=== PATIENT | male | born 1975 | race Caucasian/White ===

== ENCOUNTER 2024-05-24 12:13 | Emergency (ER) | payer OTHER ==
[2024-05-24 12:25] VITALS: TEMP 98.7
[2024-05-24] MEDS: ONDANSETRON HCL INJ 2MG/ML 2ML 2 MG/ML VIAL IV STA ×2 (13:38→14:50)
[2024-05-24] MEDS: LORAZEPAM INJ 2 MG/ML VIAL IV ONE (13:38)
[2024-05-24] MEDS: SODIUM CHLORIDE 0.9% 1000ML 1,000 ML IV ONE ×2 (13:39→14:50)
[2024-05-24] MEDS: Morphine 4mg INJECTION 4 MG/ML INJ IV ONE ×2 (13:39→14:50)
[2024-05-24] MEDS ORDERED: PROMETHAZINE HCL (IM) 25 MG/ML VIAL IM ONE (14:36)
[2024-05-24] MEDS ORDERED: DEXAMETHASONE SOD PHOS INJ 4 MG/ML SDV ONE (14:36)
[2024-05-24] MEDS: DEXAMETHASONE SOD PHOS 10 MG/1 ML VIAL IV ONE (14:50)
[2024-05-24] MEDS: PROMETHAZINE 25MG/ NS 50ML (IV) IV ONE (14:50)
[2024-05-24] MEDS: METRONIDAZOLE 500MG/NS 100ML 100 ML IV ONE (14:57)
[2024-05-24 15:03] VITALS: PULSE 104; RESP 20
[2024-05-24] MEDS ORDERED: ONDANSETRON ODT4 MG PO (15:43)
[2024-05-24] MEDS ORDERED: FLAGYL375 MG PO (15:43)
[2024-05-24] MEDS ORDERED: CIPRO500 MG PO (15:44)
[2024-05-24] MEDS: CIPROFLOXACIN 400 MG/D5W 200ML 200 ML IV ONE (15:53)
[2024-05-24 16:27] VITALS: BP 163/91; PULSE 116; RESP 20; TEMP 99; O2SAT 98
== END 2024-05-24 16:25 | disposition home or self-care (01) ==
LOC: FSED 12:27
DX: R10.84 Generalized abdominal pain (principal); R11.2 Nausea with vomiting, unspecified; E86.0 Dehydration; N28.9 Disorder of kidney and ureter, unspecified; F41.9 Anxiety disorder, unspecified; Z11.52 Encounter for screening for COVID-19; R94.31 Abnormal electrocardiogram [ECG] [EKG]
CPT/HCPCS: 0223U; 74176; 76705; 80048; 80076; 84484; 85025; 87400; 93005; 99283; J0744; J1100 ×2; J2060; J2270; J2405; J2550; J7030

== ENCOUNTER 2024-05-26 13:41 | Observation (INO) | payer BC, OTHER ==
[~2024-05-26] VITALS: Ht 175.3 cm; Wt 96.6 kg
[~2024-05-26 13:41] MED LIST: CIPRO500 MG PO; FLAGYL375 MG PO; ONDANSETRON ODT4 MG PO
[2024-05-26 13:50] VITALS: PULSE 102; RESP 16; TEMP 98.2
[2024-05-26] MEDS ORDERED: PROMETHAZINE HCL (IM) 25 MG/ML VIAL IM ONE (14:14)
[2024-05-26] MEDS: SODIUM CHLORIDE 0.9% 1000ML 1,000 ML IV ONE (14:34)
[2024-05-26] MEDS: Morphine 4mg INJECTION 4 MG/ML INJ IV ONE (14:34)
[2024-05-26] MEDS: PROMETHAZINE 25MG/ NS 50ML (IV) IV ONE (14:34)
[2024-05-26] MEDS: LORAZEPAM INJ 2 MG/ML VIAL IV ONE (14:34)
[2024-05-26 16:28] VITALS: BP 132/98; PULSE 87; RESP 18; TEMP 98.2; O2SAT 99
[2024-05-26] MEDS: SODIUM CHLORIDE 0.9% 1000ML 1,000 ML IV SCH (17:21)
[2024-05-26 18:00] VITALS: BP 132/98; PULSE 87; RESP 18; TEMP 98.2; O2SAT 99
[2024-05-26 18:08] VITALS: PULSE 89; RESP 18; O2SAT 95
[2024-05-26] MEDS ORDERED: SPIRONOLACTONE25 MG PO (19:16)
[2024-05-26] MEDS ORDERED: CLONIDINE HCL0.1 MG PO (19:16)
[2024-05-26] MEDS ORDERED: TESTOSTERONE200 MG INJ (19:16)
[2024-05-26] MEDS ORDERED: AMBIEN10 MG PO (19:16)
[2024-05-26] MEDS ORDERED: VALTREX1000 MG PO (19:24)
[2024-05-26] MEDS ORDERED: DIOVAN160 MG PO (19:24)
[2024-05-26] MEDS ORDERED: CIALIS5 MG (19:24)
[2024-05-26] MEDS ORDERED: VIAGRA25 MG (19:24)
[2024-05-26] MEDS ORDERED: BUPROPION HCL200 MG PO (19:24)
[2024-05-26] MEDS ORDERED: ALPRAZOLAM1 MG PO (19:24)
[2024-05-26] MEDS ORDERED: SEROQUEL100 MG PO (19:24)
[2024-05-26] MEDS ORDERED: CLONIDINE HCL0.2 MG PO (19:24)
[2024-05-26] MEDS ORDERED: CLONIDINE HCL 0.2 MG TAB PO PRN (19:30)
[2024-05-26 20:00] VITALS: BP 139/94; PULSE 81; RESP 20; TEMP 99.1; O2SAT 99
[2024-05-26 20:10] VITALS: PULSE 81; RESP 18; O2SAT 99
[2024-05-26] MEDS: PROMETHAZINE 12.5MG/ NACL 0.9% 12.5 MG/50 ML BAG IV PRN (20:10)
[2024-05-26] MEDS: ONDANSETRON HCL INJ 2MG/ML 2ML 2 MG/ML VIAL IV PRN (20:11)
[2024-05-26] MEDS: Morphine 2mg Syringe 2 MG/ML SYR IV PRN (20:15)
[2024-05-26] MEDS ORDERED: MOUNJARO7.5 MG/0.5 SQ (20:15)
[2024-05-26] MEDS: QUETIAPINE FUMARATE 100 MG TAB PO SCH (22:13)
[2024-05-26] MEDS: CLONIDINE HCL 0.3 MG TAB PO SCH (22:14)
[2024-05-27] VITALS (12 sets, daily range): BP systolic 121–147; BP diastolic 65–99; PULSE 62–86; RESP 18; TEMP 97.5–99.1; O2SAT 97–100
[2024-05-27] MEDS ORDERED: ALBUTEROL/IPRATROPIUM 3 ML NEB NEB PRN (00:15)
[2024-05-27] MEDS ORDERED: ACETAMINOPHEN 325 MG TAB PO PRN (00:15)
[2024-05-27] MEDS ORDERED: DEXTROSE 50% SYRINGE 50 ML IV PRN (00:15)
[2024-05-27] MEDS ORDERED: BENZONATATE 100 MG CAP PO PRN (00:15)
[2024-05-27] MEDS ORDERED: LIDOCAINE 4% PATCH TP PRN (00:15)
[2024-05-27] MEDS ORDERED: DOCUSATE SODIUM 100 MG CAP PO PRN (00:15)
[2024-05-27] MEDS ORDERED: SIMETHICONE 80 MG CHEW PO PRN (00:15)
[2024-05-27] MEDS ORDERED: DIPHENHYDRAMINE HCL 25 MG CAP PO PRN (00:15)
[2024-05-27] MEDS: SODIUM CHLORIDE 0.9% 1000ML 1,000 ML IV SCH (03:13)
[2024-05-27 06:27] LABS: BASOPHILS % 0.3 % (0.0-1.0); EOSINOPHILS % 0.2 % (0.0-6.0); HEMATOCRIT 41.5 % (38.2-49.6); HEMOGLOBIN 12.7 g/dL (14.0-18.0); LYMPHOCYTES # (AUTO) 2.2 (1.0-3.2); LYMPHOCYTES % 34.8 % (18.0-39.1); MEAN CORPUSCULAR HEMOGLOBIN 23.5 pg (28-32); MEAN CORPUSCULAR HGB CONC 30.6 g/dL (31-35); MEAN CORPUSCULAR VOLUME 76.7 fL (81-99); MONOCYTES # (AUTO) 0.6 (0.2-0.8); MONOCYTES % 8.9 % (4.4-11.3); NEUTROPHILS # (AUTO) 3.5 (2.1-6.9); NEUTROPHILS % 55.3 % (38.7-80.0); PLATELET COUNT 217 x10e3/uL (140-360); RED BLOOD COUNT 5.41 x10e6/uL (4.3-5.7); RED CELL DISTRIBUTION WIDTH 19.6 % (11.7-14.4); WHITE BLOOD COUNT 6.27 x10e3/uL (4.8-10.8)
[2024-05-27 07:12] LABS: ANION GAP 13.2 mmol/L (8-16); CALCIUM 8.4 mg/dL (8.4-10.2); CREATININE, SERUM 0.94 mg/dL (0.72-1.25)
[2024-05-27 07:36] LABS: POTASSIUM 3.2 mmol/L (3.5-5.1)
[2024-05-27] MEDS: VALSARTAN 160 MG TAB PO SCH (09:00)
[2024-05-27] MEDS ORDERED: SPIRONOLACTONE 25 MG TAB PO SCH (09:00)
[2024-05-27] MEDS: PANTOPRAZOLE SOD 40 MG TABEC PO SCH (10:33)
[2024-05-27] MEDS: CLONIDINE HCL 0.3 MG TAB PO SCH (10:34)
[2024-05-27] MEDS: POTASSIUM CHLORIDE 20 MEQ TAB CR PO PRN (10:50)
[2024-05-27] MEDS: BUPROPION HCL 200 MG PO SCH (11:30)
[2024-05-27] MEDS: ENOXAPARIN SOD INJ 40 MG/0.4 ML SYR SC SCH (16:55)
[2024-05-27] MEDS: MELATONIN 5 MG TABLET PO PRN (20:58)
[2024-05-27] MEDS: METOCLOPRAMIDE HCL 10 MG/2ML VIAL IV SCH (23:08)
[2024-05-28 00:16] VITALS: BP 150/105
[2024-05-28 01:24] LABS: % IRON SATURATION 17 % (15-50); IRON 53 ug/dL (65-175); TOTAL IRON BINDING CAPACITY 314 ug/dL (261-478); TRANSFERRIN 224 mg/dL (174-364)
[2024-05-28 01:58] LABS: FOLATE 4.4 ng/mL (7.0-15.4)
[2024-05-28 03:45] VITALS: BP 156/98; PULSE 63; RESP 18; TEMP 98; O2SAT 96
[2024-05-28 08:27] VITALS: BP 138/94; PULSE 65; RESP 18; TEMP 97.9; O2SAT 99
[2024-05-28] MEDS: HYDRALAZINE HCL 20 MG/ML VIAL IV PRN (12:22)
[2024-05-28 12:38] VITALS: BP 143/107; PULSE 59; RESP 18; TEMP 98.4; O2SAT 99
[2024-05-28 14:36] LABS: ANION GAP 11.6 mmol/L (8-16); CALCIUM 8.3 mg/dL (8.4-10.2); CREATININE, SERUM 0.86 mg/dL (0.72-1.25); POTASSIUM 3.6 mmol/L (3.5-5.1)
== END 2024-05-28 17:00 | disposition home or self-care (01) ==
LOC: FSED 13:51 → ERHOLD 14:17 → MED/SURG2 15:58
PROVIDERS: ADMIT Internal Medicine; ATTEND Internal Medicine
DX: R11.2 Nausea with vomiting, unspecified (principal); T50.995A Adverse effect of other drugs, medicaments and biological substances, initial encounter; E66.01 Morbid (severe) obesity due to excess calories; Z68.31 Body mass index [BMI] 31.0-31.9, adult; E86.0 Dehydration; N17.9 Acute kidney failure, unspecified; I10 Essential (primary) hypertension; F41.8 Other specified anxiety disorders; E87.8 Other disorders of electrolyte and fluid balance, not elsewhere classified
CPT/HCPCS: 36415 ×2; 80048 ×2; 82607; 82746; 83540; 83690; 84466; 84484 ×2; 85025; 85045; 94799 ×2; 99283; G0378 ×3; J0360; J1650; J2060; J2270 ×4; J2470 ×2; J2550 ×3; J2765 ×2; J7030 ×3; S0164; J2405